=== PATIENT | female | born 1985 | race Caucasian/White ===

== ENCOUNTER 2017-01-08 22:13 | Inpatient (IN) | payer MEDICAID ==
[~2017-01-08] VITALS: Ht 160 cm; Wt 58.7 kg
[2017-01-08] MEDS ORDERED: SODIUM CHLORIDE 0.9% 1,000ML IVBOLUS ONE (23:30)
[2017-01-08] MEDS ORDERED: CLINDAMYCIN PMX 900MG/50ML 50 ML IVPB ONE (23:30)
[2017-01-08] MEDS ORDERED: SODIUM CHLORIDE FLUSH 10ML SYR IVF ONE (23:30)
[2017-01-08] MEDS ORDERED: CLINDAMYCIN PMX 900MG/50ML 50 ML ONE (23:40)
[2017-01-08 23:54] LABS: BLOOD UREA NITROGEN 7 mg/dL (7-18)
[2017-01-09] MEDS ORDERED: SODIUM CHLORIDE 0.9% 1,000 ML IV ONE (01:10)
[2017-01-09] MEDS ORDERED: ONDANSETRON 2MG/ML, 2ML IVPush PRN (01:30)
[2017-01-09] MEDS ORDERED: ACETAMINOPHEN 325 MG TABLET PO ONE (01:30)
[2017-01-09] MEDS ORDERED: ACETAMINOPHEN 325 MG TABLET ONE (01:39)
[2017-01-09 04:30] VITALS: BP 101/69
[2017-01-09] MEDS ORDERED: VANCOMYCIN PER PHARMACY MC PRN (05:00)
[2017-01-09] MEDS ORDERED: PHARMACOKINETIC MONITORING MC PRN (05:30)
[2017-01-09] MEDS: AMPICILLIN/SULBACTAM 3 GM in SODIUM CHLORIDE 0.9% 100 ML IV SCH ×4 (05:41→22:49)
[2017-01-09] MEDS: SODIUM CHLORIDE 0.9% 1,000 ML IV SCH ×3 (05:42→22:49)
[2017-01-09] MEDS ORDERED: ONDANSETRON 2MG/ML, 2ML ONE (06:34)
[2017-01-09] MEDS ORDERED: PROPOFOL 10 MG/ML, 20ML ONE (06:34)
[2017-01-09] MEDS ORDERED: SUCCINYLCHOLINE 20 MG/ML, 10ML ONE (06:34)
[2017-01-09] MEDS ORDERED: KETOROLAC 30 MG/1 ML ONE (06:34)
[2017-01-09] MEDS ORDERED: DEXAMETHASONE 4 MG/ML, 1ML ONE (06:34)
[2017-01-09] MEDS: VANCOMYCIN 1,200 MG in SODIUM CHLORIDE 0.9% 250 ML IV SCH ×2 (06:43→17:51)
[2017-01-09 07:38] VITALS: BP 102/65
[2017-01-09 07:59] LABS: HIV 1&2 ANTIBODY SCREEN Nonreactive (Nonreactive); HIV-1 p24 ANTIGEN Nonreactive (Nonreactive)
[2017-01-09] MEDS ORDERED: LORazepam 2 MG/ML, 1ML IVPush ONE ×2 (10:30→15:00)
[2017-01-09 12:45] VITALS: BP 97/63
[2017-01-09 19:24] VITALS: BP 95/56
[2017-01-10 01:56] VITALS: BP 99/55
[2017-01-10] MEDS: AMPICILLIN/SULBACTAM 3 GM in SODIUM CHLORIDE 0.9% 100 ML IV SCH ×4 (05:11→23:00)
[2017-01-10 05:42] LABS: BLOOD UREA NITROGEN 6 mg/dL (7-18)
[2017-01-10] MEDS: VANCOMYCIN 1,200 MG in SODIUM CHLORIDE 0.9% 250 ML IV SCH ×2 (05:47→18:02)
[2017-01-10] MEDS ORDERED: FENTANYL PF 250 MCG/5ML ONE (06:31)
[2017-01-10] MEDS ORDERED: HYDROmorphone 1 MG/ML, 1ML ONE (06:52)
[2017-01-10 07:00] VITALS: BP 103/59
[2017-01-10] MEDS ORDERED: OXYcodone 5 MG/5 ML ORAL.SOL UDC ONE (07:23)
[2017-01-10] MEDS ORDERED: HALOPERIDOL 5 MG/ML IV ONE (07:30)
[2017-01-10] MEDS ORDERED: FENTANYL PF 100 MCG/2ML IV PRN (07:30)
[2017-01-10] MEDS ORDERED: MEPERIDINE/PF 25MG/0.5ML IVPush PRN (07:30)
[2017-01-10] MEDS ORDERED: HYDROmorphone 1 MG/ML, 1ML IV PRN (07:30)
[2017-01-10] MEDS ORDERED: ACETAMINOPHEN 325 MG TABLET PO PRN (07:30)
[2017-01-10] MEDS ORDERED: OXYcodone 5 MG/5 ML ORAL.SOL UDC PO PRN (07:30)
[2017-01-10] MEDS ORDERED: ALBUTEROL/IPRATROPIUM 2.5MG/0.5MG, 3 ML NPPB PRN (07:30)
[2017-01-10] MEDS: morphine SULFATE 10 MG/ML, 1ML IVPush PRN ×4 (09:52→19:39)
[2017-01-10] MEDS ORDERED: HYDROcodone/APAP 5/325 TABLET PO PRN (10:00)
[2017-01-10] MEDS: SODIUM CHLORIDE 0.9% 1,000 ML IV SCH (10:57)
[2017-01-10 19:26] VITALS: BP 111/59
[2017-01-10] MEDS ORDERED: ENOXAPARIN 40 MG/0.4 ML SQ SCH (21:00)
== END 2017-01-11 08:14 | disposition left against medical advice (07) | DRG 580 ==
LOC: ED 23:59 → EDIP 01-09 01:27 → 3NE 01-09 02:26
PROVIDERS: ADMIT Internal Medicine; ATTEND Internal Medicine
PROC: 0KBD0ZZ Excision of Left Hand Muscle, Open Approach (ICD-10-PCS; 2017-01-10)
PROC: 0KB50ZZ Excision of Right Shoulder Muscle, Open Approach (ICD-10-PCS; principal; 2017-01-10 06:30)
DX: L02.413 Cutaneous abscess of right upper limb (principal); L02.512 Cutaneous abscess of left hand; F11.20 Opioid dependence, uncomplicated; F17.210 Nicotine dependence, cigarettes, uncomplicated; F19.90 Other psychoactive substance use, unspecified, uncomplicated; Z86.14 Personal history of Methicillin resistant Staphylococcus aureus infection; Z80.9 Family history of malignant neoplasm, unspecified; Z88.5 Allergy status to narcotic agent
CPT/HCPCS: 36415; 71010; 80048; 83605; 84145; 84703; 85025; 86703; 86704; 86705; 86706; 86707; 86803; 87040; 87070; 87075; 87077; 87186; 87205; 87340; 87350; 87899; 93306; 93970; 99285; J0295; J1100; J1170; J1885; J2405; J2704; J3010; J3370; G0435; J0330; J2060; J2270; J7030; J7050

== ENCOUNTER 2017-01-21 04:51 | Emergency (ER) | payer MEDICAID ==
[~2017-01-21] VITALS: Ht 160 cm; Wt 57.3 kg
[2017-01-21] MEDS ORDERED: VANCOMYCIN PER PHARMACY IV ONE (06:00)
[2017-01-21] MEDS ORDERED: SODIUM CHLORIDE FLUSH 10ML SYR IVF ONE (06:00)
[2017-01-21] MEDS ORDERED: SODIUM CHLORIDE 0.9% 1,000ML IVBOLUS ONE ×2 (06:00→10:00)
[2017-01-21] MEDS ORDERED: VANCOMYCIN 1,200 MG in SODIUM CHLORIDE 0.9% 250 ML IV ONE (06:00)
[2017-01-21] MEDS ORDERED: NALOXONE 1 MG/ML, 2ML ONE (06:07)
[2017-01-21] MEDS ORDERED: NALOXONE 0.4 MG/ML, 1ML IVPush ONE ×2 (06:30→13:00)
[2017-01-21 07:30] LABS: BLOOD UREA NITROGEN 6 mg/dL (7-18)
[2017-01-21] MEDS ORDERED: BACITRACIN ZINC OINT 500U/GM, 0.9 GM ONE (07:52)
[2017-01-21] MEDS ORDERED: ONDANSETRON 2MG/ML, 2ML ONE (09:54)
[2017-01-21] MEDS ORDERED: ONDANSETRON 2MG/ML, 2ML IVPush ONE (10:00)
[2017-01-21 12:44] VITALS: BP 112/52
== END 2017-01-21 13:36 | disposition home or self-care (01) ==
LOC: ED 06:00
DX: L03.114 Cellulitis of left upper limb (principal); F11.129 Opioid abuse with intoxication, unspecified; F17.210 Nicotine dependence, cigarettes, uncomplicated
CPT/HCPCS: 36415; 73130; 80048; 82040; 83605; 85025; 87040; 87070; 87077; 87186; 87205; 96361; 96365; 96366; 96375; 96376; 99285; J2310; J2405; J3370; J7030; J7050

== ENCOUNTER 2017-04-11 16:44 | Emergency (ER) | payer MEDICAID ==
[~2017-04-11] VITALS: Ht 160 cm; Wt 56.3 kg
[2017-04-11 17:40] LABS: HEMATOCRIT 36.9 % (34.6-47.8); HEMOGLOBIN 12.8 g/dL (11.7-16.4); WHITE BLOOD COUNT 9.1 x10^3/uL (3.4-10)
[2017-04-11 17:52] LABS: BLOOD UREA NITROGEN 8 mg/dL (7-18)
[2017-04-11] MEDS ORDERED: PIPERACILLIN/TAZO/PMX 3.375GM 50 ML IV ONE (18:30)
[2017-04-11] MEDS ORDERED: VANCOMYCIN PER PHARMACY MC ONE (18:30)
[2017-04-11] MEDS ORDERED: PHARMACOKINETIC CONSULTATION MC ONE (18:30)
[2017-04-11] MEDS ORDERED: VANCOMYCIN PMX 1GM/200ML 200 ML IV ONE (18:30)
[2017-04-11] MEDS ORDERED: PIPERACILLIN/TAZO/PMX 3.375GM 50 ML ONE (18:40)
[2017-04-11] MEDS ORDERED: IBUPROFEN 200 MG TABLET PO ONE (20:30)
[2017-04-11] MEDS ORDERED: IBUPROFEN 200 MG TABLET ONE (20:31)
[2017-04-11 20:45] VITALS: BP 112/76
== END 2017-04-11 21:38 | disposition left against medical advice (07) ==
LOC: ED 18:12
DX: L03.114 Cellulitis of left upper limb (principal); Z88.6 Allergy status to analgesic agent
CPT/HCPCS: 36415; 73080; 80048; 82040; 83605; 84145; 85025; 85651; 86140; 87040; 96365; 96367; 99285; J2543; J3370

== ENCOUNTER 2017-04-12 07:18 | Inpatient (IN) | payer MEDICAID ==
[~2017-04-12] VITALS: Ht 160 cm; Wt 60.7 kg
[2017-04-12] MEDS ORDERED: SODIUM CHLORIDE FLUSH 10ML SYR IVF ONE (08:00)
[2017-04-12] MEDS ORDERED: AMPICILLIN/SULBACTAM 3 GM in SODIUM CHLORIDE 0.9% 100 ML IVPB ONE (08:00)
[2017-04-12] MEDS ORDERED: SODIUM CHLORIDE 0.9% 1,000ML IVBOLUS ONE (08:00)
[2017-04-12 08:01] LABS: HEMATOCRIT 40.8 % (34.6-47.8); HEMOGLOBIN 14.1 g/dL (11.7-16.4); WHITE BLOOD COUNT 11.3 x10^3/uL (3.4-10)
[2017-04-12 08:10] LABS: BLOOD UREA NITROGEN 9 mg/dL (7-18)
[2017-04-12] MEDS ORDERED: HYDROmorphone 1 MG/ML, 1ML ONE (09:53)
[2017-04-12] MEDS ORDERED: ONDANSETRON 2MG/ML, 2ML ONE (09:53)
[2017-04-12] MEDS ORDERED: HYDROmorphone 1 MG/ML, 1ML IV ONE ×2 (10:00→10:30)
[2017-04-12] MEDS ORDERED: LORazepam 1MG TABLET PO PRN (11:30)
[2017-04-12] MEDS ORDERED: ONDANSETRON 2MG/ML, 2ML IVPush PRN (11:30)
[2017-04-12] MEDS ORDERED: BISACODYL 10 MG SUPP PR PRN (11:30)
[2017-04-12] MEDS ORDERED: OMNIPAQUE 350 MG/ML, 100ML BOTTLE ONE (11:30)
[2017-04-12] MEDS ORDERED: ACETAMINOPHEN 325 MG TABLET PO PRN (11:30)
[2017-04-12] MEDS ORDERED: VANCOMYCIN PER PHARMACY MC PRN (11:30)
[2017-04-12] MEDS ORDERED: LABETALOL 5MG/ML, 20ML IVPush PRN (11:30)
[2017-04-12] MEDS ORDERED: POLYETHYLENE GLYCOL 17 GM PACKET PO PRN (11:30)
[2017-04-12] MEDS ORDERED: DOCUSATE 100 MG CAPSULE PO PRN (11:30)
[2017-04-12 11:35] VITALS: BP 108/71
[2017-04-12] MEDS ORDERED: POTASSIUM CHLORIDE 20 MEQ TAB.ER.PRT PO ONE (12:00)
[2017-04-12] MEDS ORDERED: PHARMACOKINETIC CONSULTATION MC ONE (12:30)
[2017-04-12] MEDS ORDERED: PHARMACOKINETIC MONITORING MC PRN (12:30)
[2017-04-12] MEDS: NS + 20MEQ KCL 1,000 ML IV SCH (12:45)
[2017-04-12] MEDS: ENOXAPARIN 40 MG/0.4 ML SQ SCH (12:45)
[2017-04-12] MEDS: HYDROcodone/APAP 5/325 TABLET PO PRN ×2 (12:46→22:11)
[2017-04-12] MEDS: AMPICILLIN/SULBACTAM 3 GM in SODIUM CHLORIDE 0.9% 100 ML IV SCH ×2 (12:53→18:16)
[2017-04-12] MEDS: morphine SULFATE 10 MG/ML, 1ML IVPush PRN ×2 (14:09→19:15)
[2017-04-12 15:13] VITALS: BP 110/71
[2017-04-12] MEDS: VANCOMYCIN PMX 1GM/200ML 200 ML IV SCH (17:08)
[2017-04-12 19:29] VITALS: BP 116/75
[2017-04-13] MEDS ORDERED: MORPHINE SULFATE 4 MG/ML, 1ML ONE (00:06)
[2017-04-13] MEDS: morphine SULFATE 10 MG/ML, 1ML IVPush PRN ×6 (00:08→23:28)
[2017-04-13] MEDS: AMPICILLIN/SULBACTAM 3 GM in SODIUM CHLORIDE 0.9% 100 ML IV SCH ×4 (00:20→18:19)
[2017-04-13] MEDS: NS + 20MEQ KCL 1,000 ML IV SCH ×3 (00:20→20:30)
[2017-04-13 01:19] VITALS: BP 107/72
[2017-04-13 04:36] LABS: HEMOGLOBIN 13.8 g/dL (11.7-16.4); WHITE BLOOD COUNT 10.6 x10^3/uL (3.4-10)
[2017-04-13 04:46] LABS: BLOOD UREA NITROGEN 5 mg/dL (7-18)
[2017-04-13] MEDS: VANCOMYCIN PMX 1GM/200ML 200 ML IV SCH ×2 (05:25→17:13)
[2017-04-13] MEDS: HYDROcodone/APAP 5/325 TABLET PO PRN ×3 (06:43→20:26)
[2017-04-13 06:45] VITALS: BP 100/67
[2017-04-13] MEDS: ENOXAPARIN 40 MG/0.4 ML SQ SCH (12:17)
[2017-04-13 14:25] VITALS: BP 96/61
[2017-04-13 19:01] VITALS: BP 98/62
[2017-04-13] MEDS ORDERED: NICOTINE 14MG/24 HR PATCH.TD24 TD ONE (22:00)
[2017-04-14] MEDS: AMPICILLIN/SULBACTAM 3 GM in SODIUM CHLORIDE 0.9% 100 ML IV SCH (00:52)
[2017-04-14 02:09] VITALS: BP 105/63
[2017-04-14] MEDS: HYDROcodone/APAP 5/325 TABLET PO PRN ×2 (03:26→11:26)
[2017-04-14] MEDS: NS + 20MEQ KCL 1,000 ML IV SCH (03:30)
[2017-04-14 05:04] LABS: HEMATOCRIT 34.2 % (34.6-47.8); HEMOGLOBIN 11.6 g/dL (11.7-16.4); WHITE BLOOD COUNT 8.9 x10^3/uL (3.4-10)
[2017-04-14 05:08] LABS: BLOOD UREA NITROGEN 4 mg/dL (7-18)
[2017-04-14] MEDS ORDERED: VANCOMYCIN 1,300 MG in SODIUM CHLORIDE 0.9% 250 ML IV SCH (05:30)
[2017-04-14 08:23] VITALS: BP 121/80
[2017-04-14] MEDS: morphine SULFATE 10 MG/ML, 1ML IVPush PRN ×2 (08:59→12:37)
[2017-04-14] MEDS ORDERED: SULFAMETH./TRIMETHOPRIM DS 800MG/160MG TABLET PO SCH (09:00)
[2017-04-14] MEDS: ENOXAPARIN 40 MG/0.4 ML SQ SCH (12:30)
[2017-04-14 14:00] VITALS: BP 101/60
== END 2017-04-14 13:40 | disposition left against medical advice (07) | DRG 872 ==
LOC: ED 08:04 → EDIP 10:28 → 3NW 11:29
PROVIDERS: ADMIT Hospitalist; ATTEND Hospitalist
DX: A41.9 Sepsis, unspecified organism (principal); F11.10 Opioid abuse, uncomplicated; L03.114 Cellulitis of left upper limb; E87.6 Hypokalemia; F17.210 Nicotine dependence, cigarettes, uncomplicated; F19.90 Other psychoactive substance use, unspecified, uncomplicated; F41.9 Anxiety disorder, unspecified; Z53.21 Procedure and treatment not carried out due to patient leaving prior to being seen by health care provider; Z86.14 Personal history of Methicillin resistant Staphylococcus aureus infection; Z91.19 Patient's noncompliance with other medical treatment and regimen
CPT/HCPCS: 36415; 80048; 80202; 82040; 83605; 85025; 87040; 96365; 96375; J0295; J1170; J1650; J3370; J3480; Q9967; J2270; J7030; J7050

== ENCOUNTER 2017-05-05 07:29 | Inpatient (IN) | payer MEDICAID ==
[2017-05-05] VITALS (8 sets, daily range): BP systolic 85–104; BP diastolic 44–70
[~2017-05-05] VITALS: Ht 160 cm; Wt 56.9 kg
[2017-05-05] MEDS ORDERED: LORazepam 1MG TABLET ONE (07:51)
[2017-05-05] MEDS ORDERED: SODIUM CHLORIDE 0.9% 1,000ML IVBOLUS ONE ×2 (08:00→13:30)
[2017-05-05] MEDS ORDERED: LORazepam 2 MG/ML, 1ML IVPush ONE (08:00)
[2017-05-05 08:35] LABS: BLOOD UREA NITROGEN 22 mg/dL (7-18)
[2017-05-05 09:00] LABS: HEMATOCRIT 38.9 % (34.6-47.8); HEMOGLOBIN 13.3 g/dL (11.7-16.4); WHITE BLOOD COUNT 4.7 x10^3/uL (3.4-10)
[2017-05-05] MEDS ORDERED: SODIUM CHLORIDE FLUSH 10ML SYR IVF ONE (09:00)
[2017-05-05 09:01] LABS: DIFF TOTAL CELLS COUNTED 100 CELL DIFF
[2017-05-05 09:03] LABS: VERIFY COUNTS? YES
[2017-05-05 09:04] LABS: LARGE PLATELETS 1+
[2017-05-05] MEDS ORDERED: CEFTRIAXONE PMX 1GM/50ML 50 ML IVPB ONE (11:00)
[2017-05-05] MEDS ORDERED: POTASSIUM CHLORIDE 40 MEQ in SODIUM CHLORIDE 0.9% 500 ML IV ONE (11:30)
[2017-05-05] MEDS ORDERED: BISACODYL 10 MG SUPP PR PRN (12:30)
[2017-05-05] MEDS: NICOTINE 21 MG/24 HR PATCH.TD24 TD SCH (12:30)
[2017-05-05] MEDS ORDERED: DOCUSATE 100 MG CAPSULE PO PRN (12:30)
[2017-05-05] MEDS ORDERED: POLYETHYLENE GLYCOL 17 GM PACKET PO PRN (12:30)
[2017-05-05] MEDS ORDERED: ENOXAPARIN 40 MG/0.4 ML SQ SCH (12:30)
[2017-05-05] MEDS ORDERED: LABETALOL 5MG/ML, 20ML IVPush PRN (12:30)
[2017-05-05] MEDS ORDERED: ACETAMINOPHEN 325 MG TABLET PO PRN (12:30)
[2017-05-05] MEDS: NS + 20MEQ KCL 1,000 ML IV SCH (12:54)
[2017-05-05] MEDS ORDERED: MAGNESIUM SULFATE PMX 4GM/100M 100 ML IV ONE (14:00)
[2017-05-05] MEDS: LORazepam 1MG TABLET PO PRN (20:32)
[2017-05-05] MEDS: HYDROcodone/APAP 5/325 TABLET PO PRN ×2 (22:29→23:11)
[2017-05-05] MEDS: ONDANSETRON 2MG/ML, 2ML IVPush PRN (23:11)
[2017-05-06] MEDS: HYDROcodone/APAP 5/325 TABLET PO PRN ×5 (00:25→21:32)
[2017-05-06 01:46] VITALS: BP 100/63
[2017-05-06] MEDS: ONDANSETRON ODT 4 MG PO PRN ×2 (02:22→08:53)
[2017-05-06] MEDS: LORazepam 1MG TABLET PO PRN ×4 (02:22→19:45)
[2017-05-06] MEDS: NS + 20MEQ KCL 1,000 ML IV SCH (03:48)
[2017-05-06 06:24] LABS: HEMOGLOBIN 12.1 g/dL (11.7-16.4); WHITE BLOOD COUNT 14.3 x10^3/uL (3.4-10)
[2017-05-06 06:52] VITALS: BP 103/66
[2017-05-06 06:55] LABS: ASPARTATE AMINO TRANSFERASE 37 U/L (15-37); BLOOD UREA NITROGEN 10 mg/dL (7-18)
[2017-05-06] MEDS: THIAMINE 100MG TABLET PO SCH (08:53)
[2017-05-06] MEDS: FOLIC ACID 1 MG TABLET PO SCH (08:53)
[2017-05-06] MEDS: MULTIVITAMIN 1 TABLET PO SCH (08:53)
[2017-05-06] MEDS: POTASSIUM CHLORIDE 20 MEQ in SODIUM CHLORIDE 0.45% 1,000 ML IV SCH ×2 (10:42→23:59)
[2017-05-06] MEDS: CEFTRIAXONE PMX 1GM/50ML 50 ML IV SCH (11:00)
[2017-05-06] MEDS: NICOTINE 21 MG/24 HR PATCH.TD24 TD SCH (12:30)
[2017-05-06 14:00] VITALS: BP 103/65
[2017-05-06] MEDS: ONDANSETRON 2MG/ML, 2ML IVPush PRN ×2 (14:37→21:32)
[2017-05-06] MEDS: ENOXAPARIN 40 MG/0.4 ML SQ SCH (14:38)
[2017-05-06] MEDS ORDERED: PROMETHAZINE 25 MG/ML, 1ML IM PRN (16:30)
[2017-05-06] MEDS ORDERED: PROCHLORPERAZINE 25 MG SUPP PR PRN (16:30)
[2017-05-06 18:51] VITALS: BP 109/75
[2017-05-07 01:03] VITALS: BP 101/64
[2017-05-07] MEDS: LORazepam 1MG TABLET PO PRN ×3 (02:28→19:56)
[2017-05-07] MEDS: ONDANSETRON ODT 4 MG PO PRN (02:29)
[2017-05-07] MEDS: HYDROcodone/APAP 5/325 TABLET PO PRN ×4 (04:01→21:35)
[2017-05-07 05:45] LABS: HEMATOCRIT 37.3 % (34.6-47.8); HEMOGLOBIN 12.8 g/dL (11.7-16.4); WHITE BLOOD COUNT 10.5 x10^3/uL (3.4-10)
[2017-05-07 06:32] LABS: BLOOD UREA NITROGEN 5 mg/dL (7-18)
[2017-05-07 06:55] VITALS: BP 110/67
[2017-05-07] MEDS: MULTIVITAMIN 1 TABLET PO SCH (08:41)
[2017-05-07] MEDS: FOLIC ACID 1 MG TABLET PO SCH (08:41)
[2017-05-07] MEDS: THIAMINE 100MG TABLET PO SCH (08:41)
[2017-05-07] MEDS: CEFTRIAXONE PMX 1GM/50ML 50 ML IV SCH (12:30)
[2017-05-07] MEDS: NICOTINE 21 MG/24 HR PATCH.TD24 TD SCH (12:30)
[2017-05-07] MEDS: ENOXAPARIN 40 MG/0.4 ML SQ SCH (13:00)
[2017-05-07 13:18] VITALS: BP 145/64
[2017-05-07] MEDS: POTASSIUM CHLORIDE 20 MEQ in SODIUM CHLORIDE 0.45% 1,000 ML IV SCH (15:55)
[2017-05-07 18:30] VITALS: BP 128/70
[2017-05-08 00:23] VITALS: BP 108/70
[2017-05-08] MEDS: LORazepam 1MG TABLET PO PRN ×3 (03:44→20:43)
[2017-05-08] MEDS: HYDROcodone/APAP 5/325 TABLET PO PRN ×3 (05:07→20:24)
[2017-05-08] MEDS: POTASSIUM CHLORIDE 20 MEQ in SODIUM CHLORIDE 0.45% 1,000 ML IV SCH ×2 (05:08→15:54)
[2017-05-08 06:13] LABS: HEMATOCRIT 39.7 % (34.6-47.8); HEMOGLOBIN 13.5 g/dL (11.7-16.4); WHITE BLOOD COUNT 8.5 x10^3/uL (3.4-10)
[2017-05-08 06:24] LABS: BLOOD UREA NITROGEN 4 mg/dL (7-18)
[2017-05-08 07:09] VITALS: BP 109/73
[2017-05-08] MEDS: MULTIVITAMIN 1 TABLET PO SCH (09:29)
[2017-05-08] MEDS: FOLIC ACID 1 MG TABLET PO SCH (09:29)
[2017-05-08] MEDS: THIAMINE 100MG TABLET PO SCH (09:29)
[2017-05-08] MEDS: CEFTRIAXONE PMX 1GM/50ML 50 ML IV SCH (10:58)
[2017-05-08] MEDS: NICOTINE 21 MG/24 HR PATCH.TD24 TD SCH (12:20)
[2017-05-08] MEDS: ENOXAPARIN 40 MG/0.4 ML SQ SCH (12:44)
[2017-05-08 13:05] VITALS: BP 113/73
[2017-05-08] MEDS ORDERED: LABETALOL 5MG/ML, 20ML IVPush PRN (19:00)
[2017-05-08] MEDS ORDERED: BISACODYL 10 MG SUPP PR PRN (19:00)
[2017-05-08] MEDS ORDERED: POLYETHYLENE GLYCOL 17 GM PACKET PO PRN (19:00)
[2017-05-08] MEDS ORDERED: ACETAMINOPHEN 325 MG TABLET PO PRN (19:00)
[2017-05-08] MEDS ORDERED: DOCUSATE 100 MG CAPSULE PO PRN (19:00)
[2017-05-08 19:48] VITALS: BP 118/76
[2017-05-08] MEDS ORDERED: POTASSIUM CHLORIDE 20 MEQ in SODIUM CHLORIDE 0.45% 1,000 ML IV SCH (21:00)
[2017-05-09 01:24] VITALS: BP 112/75
[2017-05-09] MEDS: HYDROcodone/APAP 5/325 TABLET PO PRN (02:58)
[2017-05-09 04:17] LABS: HEMOGLOBIN 13.9 g/dL (11.7-16.4)
[2017-05-09 04:26] LABS: BLOOD UREA NITROGEN 5 mg/dL (7-18)
[2017-05-09] MEDS: LORazepam 1MG TABLET PO PRN (05:03)
[2017-05-09] MEDS: FOLIC ACID 1 MG TABLET PO SCH (09:18)
[2017-05-09] MEDS: MULTIVITAMIN 1 TABLET PO SCH (09:18)
[2017-05-09] MEDS: THIAMINE 100MG TABLET PO SCH (09:18)
[2017-05-09 09:26] VITALS: BP 167/86
[2017-05-09] MEDS ORDERED: METH5SOL PO (10:00)
[2017-05-09] MEDS ORDERED: THIA100T6 PO (10:00)
[2017-05-09] MEDS ORDERED: FOLI-17 PO (10:00)
[2017-05-09] MEDS ORDERED: MULT1TAB60 PO (10:00)
== END 2017-05-09 11:40 | disposition home or self-care (01) | DRG 872 ==
LOC: ED 08:52 → EDIP 11:01 → 3NE 12:15 → 5SO 13:05 → 4WST 19:42
PROVIDERS: ADMIT Hospitalist; ATTEND Hospitalist
DX: A41.50 Gram-negative sepsis, unspecified (principal); N17.9 Acute kidney failure, unspecified; N30.90 Cystitis, unspecified without hematuria; R65.20 Severe sepsis without septic shock; B96.20 Unspecified Escherichia coli [E. coli] as the cause of diseases classified elsewhere; F41.9 Anxiety disorder, unspecified; F11.10 Opioid abuse, uncomplicated; Z80.3 Family history of malignant neoplasm of breast; Z80.51 Family history of malignant neoplasm of kidney; Z80.8 Family history of malignant neoplasm of other organs or systems; Z87.891 Personal history of nicotine dependence; Z91.19 Patient's noncompliance with other medical treatment and regimen; Z88.8 Allergy status to other drugs, medicaments and biological substances
CPT/HCPCS: 36415; 71010; 80048; 80053; 81001; 82040; 83605; 83735; 84100; 84703; 85025; 87040; 87077; 87086; 87186; 93005; 96361; 96374; J0696; J1650; J2405; J2550; J3480; Q0162; J2060; J3475; J7030; J7040

== ENCOUNTER 2018-01-12 20:11 | Emergency (ER) | payer MEDICAID ==
[~2018-01-12] VITALS: Ht 160 cm; Wt 64.0 kg
[~2018-01-12 20:11] MED LIST: FOLI-17 PO; METH5SOL PO; MULT1TAB60 PO; THIA100T6 PO
[2018-01-12 20:58] LABS: BASOPHILS # (AUTO) 0.02 x10^3/uL (0-0.1); BASOPHILS % (AUTO) 0 % (0-1); EOSINOPHILS # (AUTO) 0.14 x10^3/uL (0-0.4); EOSINOPHILS % (AUTO) 2 % (1-7); LYMPHOCYTES # (AUTO) 1.58 x10^3/uL (1-3.4); LYMPHOCYTES % (AUTO) 23 % (22-44); MD NO; MEAN CORPUSCULAR HEMOGLOBIN 30.3 pg (27.0-34.8); MEAN CORPUSCULAR HGB CONC 34.3 g/dL (32.4-35.8); MEAN CORPUSCULAR VOLUME 88.4 fL (80-100); MEAN PLATELET VOLUME 8.1 fL (7.4-10.4); MONOCYTES # (AUTO) 0.46 x10^3/uL (0.2-0.8); MONOCYTES % (AUTO) 7 % (2-9); NEUTROPHILS # (AUTO) 4.59 x10^3/uL (1.8-6.8); NEUTROPHILS % (AUTO) 68 % (42-75); PLATELET COUNT 203 x10^3/uL (130-400); RED BLOOD COUNT 3.76 x10^6/uL (3.82-5.3); RED CELL DISTRIBUTION WIDTH 13.8 % (9.6-15.2)
[2018-01-12 21:01] LABS: MICROSCOPIC NOT IND
[2018-01-12 21:04] LABS: ALANINE AMINOTRANSFERASE 48 U/L (12-78); ALBUMIN 3.1 g/dL (3.4-5.0); ANION GAP 7 mmol/L (5-15); CALCIUM 8.6 mg/dL (8.5-10.1); CHLORIDE 107 mmol/L (98-107); CREATININE 0.52 mg/dL (0.55-1.02)
[2018-01-12 21:07] LABS: ALKALINE PHOSPHATASE 54 U/L (45-117); BILIRUBIN,TOTAL 0.3 mg/dL (0.2-1.0); TOTAL PROTEIN 6.9 g/dL (6.4-8.2)
[2018-01-12 21:07] LABS: CULTURE INDICATED? NO
[2018-01-12 22:54] VITALS: BP 111/58
== END 2018-01-12 23:10 | disposition home or self-care (01) ==
LOC: ED 23:00
DX: O99.321 Drug use complicating pregnancy, first trimester (principal); F11.10 Opioid abuse, uncomplicated; Z04.6 Encounter for general psychiatric examination, requested by authority; Z88.6 Allergy status to analgesic agent; Z3A.01 Less than 8 weeks gestation of pregnancy
CPT/HCPCS: 36415; 80053; 81003; 85025; 99284

== ENCOUNTER 2018-09-27 20:29 | Emergency (ER) | payer MEDICAID ==
[~2018-09-27] VITALS: Ht 160 cm; Wt 61.0 kg
[~2018-09-27 20:29] MED LIST changes: -THIA100T6 PO; +THIA100T67 PO
[2018-09-27] MEDS ORDERED: LIDOCAINE-MPF 1%, 5ML INFIL ONE (21:00)
[2018-09-27] MEDS ORDERED: SULFAMETH./TRIMETHOPRIM DS 800MG/160MG TABLET PO ONE (21:30)
[2018-09-27] MEDS ORDERED: CEPHALEXIN 500 MG CAPSULE PO ONE (21:30)
[2018-09-27] MEDS ORDERED: LIDOCAINE-MPF 1%, 5ML ONE (21:38)
[2018-09-27] MEDS ORDERED: SULFAMETH./TRIMETHOPRIM DS 800MG/160MG TABLET ONE (21:55)
[2018-09-27] MEDS ORDERED: CEPHALEXIN 500 MG CAPSULE ONE (21:55)
--- NOTE | 2018-09-27 21:57 | NUR ---
PT MEDICATED. VSS. PT HS NO NEEDS AT THIS TIME. ABCESS DRAINED AND BANDAGED
[2018-09-27 22:02] VITALS: BP 115/71
--- NOTE | 2018-09-27 22:02 | NUR ---
Patient given discharge instructions and they have confirmed that they understand the instructions. Patient ambulatory with steady gait.
== END 2018-09-27 22:05 | disposition home or self-care (01) ==
LOC: ED 21:45
DX: L02.412 Cutaneous abscess of left axilla (principal); Z98.890 Other specified postprocedural states; Z90.49 Acquired absence of other specified parts of digestive tract
CPT/HCPCS: 10060; 99283

== ENCOUNTER 2019-02-04 22:50 | Emergency (ER) | payer MEDICAID ==
[~2019-02-04] VITALS: Ht 160 cm; Wt 62.9 kg
--- NOTE | 2019-02-04 23:06 | NUR ---
PT STATED THAT SHE MAY HAVE A CONDOM IN RECTAL AREA X 3 DAYS. NAUSEATED, ABD PAIN, NO BM X 3 DAYS. PT STATED THAT THE HEALTH DEPARTMENT CALLED "STATING THAT I MAY HAVE BEEN EXPOSED SYPHYLLIS. MONITORS APPLIED, SIDERAILS UP X2, CALL LIGHT WITHIN REACH. PA AT BEDSIDE FOR EVAL
--- NOTE | 2019-02-04 23:35 | NUR ---
PT UP TO RR WITH STEADY GAIT
[2019-02-04 23:55] LABS: CLUE CELLS NONE SEEN (NONE SEEN); WET PREP WBCS NONE SEEN (FEW)
[2019-02-05 00:19] VITALS: BP 100/66
--- NOTE | 2019-02-05 00:20 | NUR ---
PT UP TO RR WITH STEADY GAIT, ATTEMPTING TO OBTAIN URINE SAMPLE
[2019-02-05] MEDS ORDERED: CEFTRIAXONE 250 MG ONE (00:21)
--- NOTE | 2019-02-05 00:29 | NUR ---
PT MEDICATED PER SEP. URINE SAMPLE SENT
[2019-02-05] MEDS ORDERED: CEFTRIAXONE 250 MG IM ONE (00:30)
[2019-02-05 00:38] LABS: HCG UR SG 1.009 (1.003-1.030); MICROSCOPIC AUTO
[2019-02-05 00:39] LABS: CULTURE INDICATED? YES
== END 2019-02-05 01:02 | disposition home or self-care (01) ==
LOC: ED 23:20
DX: N73.0 Acute parametritis and pelvic cellulitis (principal); N72 Inflammatory disease of cervix uteri; A64 Unspecified sexually transmitted disease; F11.10 Opioid abuse, uncomplicated; Z72.9 Problem related to lifestyle, unspecified; F17.210 Nicotine dependence, cigarettes, uncomplicated
CPT/HCPCS: 81001; 81025; 87077; 87086; 87186; 87210; 87491; 87591; 87808; 96372; 99283; J0696

== ENCOUNTER 2021-01-27 02:49 | Emergency (ER) | payer MEDICAID ==
[~2021-01-27] VITALS: Ht 160 cm; Wt 58.0 kg
[~2021-01-27 02:49] MED LIST changes: -FOLI-17 PO; +FOLI1TAB32 PO; +MULT-449 PO; -MULT1TAB60 PO
[2021-01-27 02:51] VITALS: BP 107/62
--- NOTE | 2021-01-27 03:04 | NUR ---
THIS IS A 35 YEAR OLD FEMALE WHO C/O UNUSUAL ODOR FROM URINE. PT ALSO C/O INFECTIONS ON ARMS FROM IV HEROIN USE. RIGHT SIDE ARMPIT PAIN. INSTRUCTED PT TO OBTAIN A CLEAN CATCH URINE. PT TO BATHROOM
[2021-01-27] MEDS ORDERED: DIPH,PERTUSS(ACELL),TET VAC/PF 0.5 ML IM-VACC ONE ×2 (03:43→04:00)
[2021-01-27 04:14] LABS: HCG UR SG 1.028 (1.003-1.030)
[2021-01-27 04:17] LABS: MICROSCOPIC INDICATED
[2021-01-27] MEDS ORDERED: CEFTRIAXONE 1,000 MG ONE (04:37)
[2021-01-27] MEDS ORDERED: DOXYCYCLINE 100MG TABLET ONE (04:37)
--- NOTE | 2021-01-27 04:49 | NUR ---
Patient/Caregiver given discharge instructions and they have confirmed that they understand the instructions. Patient ambulatory with steady gait. NAD, all questions answered appropriately, denies additional needs at this time. No personal belongings left in room after discharge.
[2021-01-27] MEDS ORDERED: CEFTRIAXONE 1,000 MG IM ONE (05:00)
[2021-01-27] MEDS ORDERED: DOXYCYCLINE 100MG TABLET PO ONE (05:00)
== END 2021-01-27 04:51 | disposition home or self-care (01) ==
LOC: ED 04:45
DX: N30.01 Acute cystitis with hematuria (principal); L03.113 Cellulitis of right upper limb; F17.210 Nicotine dependence, cigarettes, uncomplicated; Z98.51 Tubal ligation status; Z20.2 Contact with and (suspected) exposure to infections with a predominantly sexual mode of transmission
CPT/HCPCS: 81001; 81025; 87077; 87086; 87491; 87591; 90471; 90715; 96372; 99284; 99406; J0696; 87186

== ENCOUNTER 2021-03-08 03:39 | Emergency (ER) | payer MEDICAID ==
[~2021-03-08] VITALS: Ht 160 cm; Wt 57.0 kg
[2021-03-08] MEDS ORDERED: LIDOCAINE-MPF 1%, 5ML INFIL ONE (04:00)
--- NOTE | 2021-03-08 07:03 | NUR ---
Second set of vitals obtained and charted at this time.
--- NOTE | 2021-03-08 07:16 | NUR ---
[employer] TECHNICIAN: PT TO ROOM FROM LOBBY
--- NOTE | 2021-03-08 07:24 | NUR ---
DR ZAMORA AT BEDSIDE. PT ASSESSMENT AND POC DISCUSSED AND QUESTIONS ANSWERED. VSS, CALL LIGHT W/I REACH.
[2021-03-08] MEDS ORDERED: IBUPROFEN 600 MG TABLET PO ONE (07:30)
[2021-03-08] MEDS ORDERED: SULFAMETH./TRIMETHOPRIM DS 800MG/160MG TABLET PO ONE (07:30)
[2021-03-08] MEDS ORDERED: CEPHALEXIN 500 MG CAPSULE PO ONE (07:30)
[2021-03-08] MEDS ORDERED: ACETAMINOPHEN 500 MG TABLET PO ONE (07:30)
[2021-03-08] MEDS ORDERED: CEPHALEXIN 500 MG CAPSULE ONE (07:34)
[2021-03-08] MEDS ORDERED: SULFAMETH./TRIMETHOPRIM DS 800MG/160MG TABLET ONE (07:34)
[2021-03-08] MEDS ORDERED: IBUPROFEN 600 MG TABLET ONE (07:34)
[2021-03-08] MEDS ORDERED: LIDOCAINE-MPF 1%, 5ML ONE (07:34)
[2021-03-08] MEDS ORDERED: ACETAMINOPHEN 500 MG TABLET ONE (07:34)
--- NOTE | 2021-03-08 07:40 | NUR ---
PT MED NOTED. PT C/O PAIN WITH URINATION, PT OOB AND AMBULATED TO BATHROOM TO PROVIDE URINE SAMPLE. INSTRUCTED ON COLLECTIOON OF MID STREAM CC URINE. DR ZAMORA UPDATED RE: UIT SYMPTOMS.
[2021-03-08 08:05] LABS: MICROSCOPIC INDICATED
[2021-03-08 09:10] VITALS: BP 99/58
--- NOTE | 2021-03-08 09:12 | NUR ---
Patient/Caregiver given discharge instructions and they have confirmed that they understand the instructions. Patient ambulatory with steady gait. NAD, all questions answered appropriately, denies additional needs at this time. No personal belongings left in room after discharge. DRESSING SUPPLIES AND BREAKFAST TRAY PROVIDED.
== END 2021-03-08 09:13 | disposition home or self-care (01) ==
LOC: ED 05:59
DX: L02.413 Cutaneous abscess of right upper limb (principal); F11.10 Opioid abuse, uncomplicated; F17.200 Nicotine dependence, unspecified, uncomplicated; N73.9 Female pelvic inflammatory disease, unspecified
CPT/HCPCS: 10060; 81001; 87070; 87077; 87086; 87186; 87205